=== PATIENT | male | born 1960 | race African-American/Black ===

== ENCOUNTER 2018-02-27 17:28 | Emergency (ER) | payer OTHER ==
[~2018-02-27] VITALS: Ht 185.4 cm; Wt 110.2 kg
[~2018-02-27 17:28] MED LIST: FOLI1TAB19 PO; PHEN100C4 PO; SIMV40TA1 PO; [UNRECOGNIZED DRUG - CODE] INH
[2018-02-27 17:30] VITALS: BP 124/86
[2018-02-27 19:02] VITALS: BP 125/79
== END 2018-02-27 18:55 | disposition home or self-care (01) ==
LOC: MED 17:28
DX: S93.401A Sprain of unspecified ligament of right ankle, initial encounter (principal); I10 Essential (primary) hypertension; Z79.899 Other long term (current) drug therapy; X50.1XXA Overexertion from prolonged static or awkward postures, initial encounter; Y93.89 Activity, other specified; Y92.524 Gas station as the place of occurrence of the external cause; Y99.8 Other external cause status
CPT/HCPCS: 73610; 73630; 99283; Q0092

== ENCOUNTER 2020-04-16 15:01 | Emergency (ER) | payer OTHER ==
[~2020-04-16] VITALS: Ht 188 cm; Wt 123.4 kg
[2020-04-16 15:04] VITALS: BP 118/72
[2020-04-16 16:38] LABS: BASOPHILS # (AUTO) 0.1 K/uL (0.00-0.22); BASOPHILS % (AUTO) 0.8 % (0.0-2.0); EOSINOPHILS # (AUTO) 0.3 K/uL (0-0.4); EOSINOPHILS % (AUTO) 3.2 % (0.0-4.0); HEMATOCRIT 38.1 % (36-52); HEMOGLOBIN 12.4 g/dL (12.0-18.0); LYMPHOCYTES # (AUTO) 2.9 K/uL (2.0-11.5); LYMPHOCYTES % (AUTO) 31.4 % (20.5-51.1); MEAN CORPUSCULAR HEMOGLOBIN 31 pg (27-31); MEAN CORPUSCULAR HGB CONC 33 g/dL (33-37); MEAN CORPUSCULAR VOLUME 95.7 fL (80-94); MONOCYTES # (AUTO) 0.9 K/uL (0.8-1.0); MONOCYTES % (AUTO) 9.2 % (1.7-9.3); NEUTROPHILS # (AUTO) 5.1 K/uL (1.8-7.7); NEUTROPHILS % (AUTO) 55.4 % (42.2-75.2); PLATELET COUNT (AUTO) 218 K/uL (140-450); RED BLOOD CELL COUNT(AUTO) 3.98 MIL/uL (4.20-6.10); RED CELL DISTRIBUTION WIDTH 13.3 % (11.6-13.7); WHITE BLOOD COUNT (AUTO) 9.3 K/uL (4.8-10.8)
[2020-04-16 16:56] LABS: ALBUMIN 3.6 g/dL (3.4-5.0); ANION GAP 11.1 (8-16); CARBON DIOXIDE 28.1 mmol/L (21-32); CREATININE 1.2 mg/dL (0.6-1.3); POTASSIUM 4.2 mmol/L (3.5-5.1); TOTAL BILIRUBIN 0.3 mg/dL (0.0-1.0)
[2020-04-16] MEDS ORDERED: CLOPIDOGREL 75 MG TAB PO ONE (17:00)
[2020-04-16] MEDS ORDERED: ASPIRIN 325 MG TAB PO ONE (17:00)
[2020-04-16 17:03] LABS: PROTHROMBIN TIME 9.8 secs (10.8-13.4)
[2020-04-16] MEDS ORDERED: ATORVASTATIN 80 MG TAB ONE (17:06)
[2020-04-16 17:35] VITALS: BP 132/96
[2020-04-17] MEDS ORDERED: ATORVASTATIN 80 MG TAB PO SCH (09:00)
== END 2020-04-16 17:35 | disposition designated cancer center or children's hospital (05) ==
LOC: MED 15:01
DX: I63.9 Cerebral infarction, unspecified (principal); I10 Essential (primary) hypertension
CPT/HCPCS: 36415; 70450; 80053; 85025; 85610; 85730; 99285

== ENCOUNTER 2020-07-01 19:59 | Emergency (ER) | payer OTHER ==
[~2020-07-01] VITALS: Ht 188 cm; Wt 131.5 kg
[2020-07-01 20:08] VITALS: BP 140/76
[2020-07-01] MEDS: KETOROLAC 60 MG/2 ML VIAL IM ONE (20:31)
[2020-07-01] MEDS ORDERED: IBUP-2213 PO (21:06)
[2020-07-01 21:29] VITALS: BP 140/76
== END 2020-07-01 21:30 | disposition home or self-care (01) ==
LOC: MED 19:59
DX: S90.212A Contusion of left great toe with damage to nail, initial encounter (principal); I10 Essential (primary) hypertension; W20.8XXA Other cause of strike by thrown, projected or falling object, initial encounter; Y93.89 Activity, other specified; Y92.89 Other specified places as the place of occurrence of the external cause; Y99.8 Other external cause status
CPT/HCPCS: 73630; 96372; 99283; J1885

== ENCOUNTER 2020-12-10 04:31 | Emergency (ER) | payer OTHER ==
[~2020-12-10] VITALS: Ht 188 cm; Wt 129.3 kg
[~2020-12-10 04:31] MED LIST changes: +IBUP-2213 PO
[2020-12-10 04:55] VITALS: BP 125/71
--- NOTE | 2020-12-10 04:55 | NUR ---
TO BED AMBULATORY WITH ASSITIVE DEVICE OF CANE
--- NOTE | 2020-12-10 05:20 | NUR ---
XRAY AT BEDSIDE
[2020-12-10] MEDS ORDERED: IBUP-2218 PO (05:26)
[2020-12-10 06:05] VITALS: BP 125/71
--- NOTE | 2020-12-10 06:05 | NUR ---
Patient discharged with v/s stable. Written and verbal after care instructions given and explained. Patient alert, oriented and verbalized understanding of instructions. Ambulatory with steady gait. All questions addressed prior to discharge. Patient advised to follow up with PMD. Rx of IBUPROFEN given. Patient educated on indication of medication including possible reaction and side effects. Opportunity to ask questions provided and answered.
== END 2020-12-10 06:05 | disposition home or self-care (01) ==
LOC: MED 04:31
DX: S62.232A Other displaced fracture of base of first metacarpal bone, left hand, initial encounter for closed fracture (principal); I10 Essential (primary) hypertension; E78.5 Hyperlipidemia, unspecified; Z79.899 Other long term (current) drug therapy; W01.0XXA Fall on same level from slipping, tripping and stumbling without subsequent striking against object, initial encounter; Y93.89 Activity, other specified; Y92.89 Other specified places as the place of occurrence of the external cause; Y99.8 Other external cause status
CPT/HCPCS: 29125; 73130; 99283; Q0092

== ENCOUNTER 2020-12-18 10:29 | Emergency (ER) | payer OTHER ==
[~2020-12-18] VITALS: Ht 185.4 cm; Wt 134.3 kg
[~2020-12-18 10:29] MED LIST changes: +IBUP-2218 PO
[2020-12-18 10:36] VITALS: BP 158/88
[2020-12-18 12:10] VITALS: BP 144/76
== END 2020-12-18 12:11 | disposition home or self-care (01) ==
LOC: MED 10:29
DX: M25.531 Pain in right wrist (principal); I10 Essential (primary) hypertension; Z79.899 Other long term (current) drug therapy; W19.XXXA Unspecified fall, initial encounter; Y93.89 Activity, other specified; Y92.89 Other specified places as the place of occurrence of the external cause; Y99.8 Other external cause status
CPT/HCPCS: 73130; 99283

== ENCOUNTER 2021-01-25 05:52 | Emergency (ER) | payer OTHER ==
[~2021-01-25] VITALS: Ht 185.4 cm; Wt 129.3 kg
[2021-01-25 05:55] VITALS: BP 134/80
--- NOTE | 2021-01-25 05:55 | NUR ---
TO BED AMBULATORY
--- NOTE | 2021-01-25 06:55 | NUR ---
60 Y/O MALE BIB SELF FOR FINGER PAIN X1 HOUR. PATIENT PRESENTS TO ED WITH LEFT HAND FINGER PAIN. PT STATES IT STARTED WITH HIS FINGER THEN WENT UP HIS ARM AND NOW COMPLAINS OF SOB. DENIES N/V/D; SKIN IS PINK/WARM/DRY; AAOX4 WITH EVEN AND STEADY GAIT; LUNGS CLEAR BL AND SPEAKING IN FULL SENTENCES; HR EVEN AND REGULAR; PT DENIES ANY FEVER OR COUGH AT THIS TIME; PATIENT STATES PAIN OF 6/10 AT THIS TIME; VSS; PATIENT POSITIONED FOR COMFORT; HOB ELEVATED; BEDRAILS UP X1; BED DOWN. ER MD MADE AWARE OF PT STATUS. HX: HTN, HIGH CHOLESTEROL, AND SEIZURES NKDA MEDS: LIPITOR, ASPRIN, ISOSORBIDE
--- NOTE | 2021-01-25 07:08 | NUR ---
ROVERTO PEPPERIA SWABBED AND GIVEN TO LABS AT BEDSIDE
--- NOTE | 2021-01-25 07:11 | NUR ---
XRAY AT BEDSIDE
[2021-01-25 07:20] LABS: BASOPHILS # (AUTO) 0.1 K/uL (0.00-0.22); BASOPHILS % (AUTO) 0.8 % (0.0-2.0); EOSINOPHILS # (AUTO) 0.3 K/uL (0-0.4); HEMATOCRIT 36.1 % (36-52); HEMOGLOBIN 11.7 g/dL (12.0-18.0); LYMPHOCYTES # (AUTO) 2.4 K/uL (2.0-11.5); LYMPHOCYTES % (AUTO) 32.2 % (20.5-51.1); MEAN CORPUSCULAR HEMOGLOBIN 31 pg (27-31); MEAN CORPUSCULAR HGB CONC 33 g/dL (33-37); MEAN CORPUSCULAR VOLUME 95.5 fL (80-94); MONOCYTES # (AUTO) 0.8 K/uL (0.8-1.0); MONOCYTES % (AUTO) 10.1 % (1.7-9.3); NEUTROPHILS # (AUTO) 3.9 K/uL (1.8-7.7); NEUTROPHILS % (AUTO) 52.9 % (42.2-75.2); PLATELET COUNT (AUTO) 234 K/uL (140-450); RED BLOOD CELL COUNT(AUTO) 3.78 MIL/uL (4.20-6.10); RED CELL DISTRIBUTION WIDTH 13.1 % (11.6-13.7); WHITE BLOOD COUNT (AUTO) 7.4 K/uL (4.8-10.8)
--- NOTE | 2021-01-25 07:29 | NUR ---
Pt report given to STEFANIE SELLERS. Transfer of care at this time.
[2021-01-25 07:42] LABS: ALBUMIN 3.1 g/dL (3.4-5.0); ANION GAP 8.5 (8-16); CARBON DIOXIDE 26.9 mmol/L (21-32); POTASSIUM 4.4 mmol/L (3.5-5.1); TOTAL BILIRUBIN 0.3 mg/dL (0.0-1.0)
--- NOTE | 2021-01-25 08:38 | NUR ---
assumed patient care 60 years old male presents to er with left 2nd/3rd fingers numb to arm pain/chest pain this morning condition stable now vital stable. no sob cp, numbness reported.
[2021-01-25 08:40] VITALS: BP 143/77
[2021-01-25] MEDS ORDERED: FURO20TA8 PO (08:40)
[2021-01-25] MEDS ORDERED: DOXY-487 PO (08:40)
== END 2021-01-25 08:52 | disposition home or self-care (01) ==
LOC: MED 05:52
DX: R09.89 Other specified symptoms and signs involving the circulatory and respiratory systems (principal); M79.675 Pain in left toe(s); I10 Essential (primary) hypertension; E78.00 Pure hypercholesterolemia, unspecified; Z20.822 Contact with and (suspected) exposure to COVID-19
CPT/HCPCS: 36415; 71045; 80053; 83880; 84484; 85025; 87426; 93005; 99285; Q0092

== ENCOUNTER 2021-01-31 17:48 | Observation (INO) | payer OTHER, SELFPAY ==
[~2021-01-31] VITALS: Ht 185.4 cm; Wt 126.1 kg
[~2021-01-31 17:48] MED LIST changes: +DOXY-487 PO; +FURO20TA8 PO
[2021-01-31 17:52] VITALS: BP 114/50
--- NOTE | 2021-01-31 18:16 | NUR ---
DR. HURST BEDSIDE EVALUATING PT
--- NOTE | 2021-01-31 19:20 | NUR ---
[place] SPECIMEN COLLECTED AND GIVEN TO LAB
--- NOTE | 2021-01-31 19:20 | NUR ---
Pt report given to MARLO RENO. Transfer of care at this time.
--- NOTE | 2021-01-31 19:23 | NUR ---
Chart checked and completed. The patient's care was reviewed and supervised by Elsa Foley, RN, RN.
--- NOTE | 2021-01-31 19:30 | NUR ---
PT STATED HE HAD AN EPISODE OF DIARRHEA. PT PROVIDED WITH BEDSIDE COMMODE, WIPES AND UNDER WEAR. PT STATED HE WILL THROW AWAY HIS UNDERWEAR. NO ASSISTANCE NEEDED FOR CHANGING OR USING BEDSIDE COMMODE, PT STATED "I GOT IT". ALL NEEDS MET AT THIS TIME. BED LOCKED IN LOWEST POSITION, SIDE RAIL X1.
--- NOTE | 2021-01-31 20:00 | NUR ---
PT'S BED SHEETS CHANGED, PROVIDED WITH BLANKET AND MORE WIPES. PT'S STOOL, BROWN AND LOOSE, NO BLOOD PRESENT. PT IS BACK IN BED AND PLACED BACK ON MONITOR. ALL NEEDS MET AT THIS TIME. BED LOCKED IN LOWEST POSITION, SIDE RAILS X2 FOR SAFETY.
[2021-01-31 20:04] LABS: BASOPHILS % (AUTO) 0.4 % (0.0-2.0); EOSINOPHILS % (AUTO) 0.2 % (0.0-4.0); HEMATOCRIT 36.4 % (36-52); LYMPHOCYTES # (AUTO) 2.2 K/uL (2.0-11.5); LYMPHOCYTES % (AUTO) 24.6 % (20.5-51.1); MEAN CORPUSCULAR HEMOGLOBIN 31 pg (27-31); MEAN CORPUSCULAR HGB CONC 33 g/dL (33-37); MEAN CORPUSCULAR VOLUME 94.5 fL (80-94); MONOCYTES # (AUTO) 1.2 K/uL (0.8-1.0); MONOCYTES % (AUTO) 13.8 % (1.7-9.3); NEUTROPHILS # (AUTO) 5.4 K/uL (1.8-7.7); PLATELET COUNT (AUTO) 174 K/uL (140-450); RED BLOOD CELL COUNT(AUTO) 3.85 MIL/uL (4.20-6.10); RED CELL DISTRIBUTION WIDTH 13.2 % (11.6-13.7); WHITE BLOOD COUNT (AUTO) 8.9 K/uL (4.8-10.8)
[2021-01-31 20:22] LABS: CARBON DIOXIDE 25.1 mmol/L (21-32); CREATININE 2.6 mg/dL (0.6-1.3); POTASSIUM 4.1 mmol/L (3.5-5.1)
[2021-01-31 20:45] LABS: ALBUMIN 3.1 g/dL (3.4-5.0); TOTAL BILIRUBIN 0.5 mg/dL (0.0-1.0)
--- NOTE | 2021-01-31 21:40 | NUR ---
PT MOVED TO BED 10 VIA [facility].
--- NOTE | 2021-01-31 22:15 | NUR ---
PT GIVEN URINAL.
[2021-02-01] MEDS ORDERED: KCL 20 MEQ/WATER INJ PREMIX 200 ML IV PRN (00:15)
[2021-02-01] MEDS ORDERED: MORPHINE SULFATE 4 MG/ML SYR IVP PRN (00:15)
[2021-02-01] MEDS ORDERED: HYDROcodone/APAP 5/325 MG 1 TAB TAB PO PRN (00:15)
[2021-02-01] MEDS ORDERED: POTASSIUM CHLORIDE 10 MEQ TABER PO PRN (00:15)
[2021-02-01] MEDS ORDERED: MAGNESIUM OXIDE 400 MG TAB PO PRN (00:15)
[2021-02-01] MEDS: AZITHROMYCIN 500 MG in DEXTROSE 5% 250 ML IV SCH (00:15)
[2021-02-01] MEDS ORDERED: MAG SULF 2000 MG/WATER PREMIX 50 ML IV PRN (00:15)
[2021-02-01] MEDS ORDERED: ONDANSETRON 4 MG/2 ML VIAL IVP PRN (00:15)
[2021-02-01] MEDS ORDERED: ACETAMINOPHEN 325 MG TAB PO PRN (00:15)
--- NOTE | 2021-02-01 00:15 | NUR ---
PT IS AWAKE AND ALERT. VSS. PT IS IN STABLE CONDITION. ALL NEEDS MET AT THIS TIME. BED LOCKED IN LOWEST POSITION, SIDE RAILS X2.
[2021-02-01] MEDS ORDERED: cefTRIAXone 1,000 MG VIAL ONE (00:57)
--- NOTE | 2021-02-01 01:10 | NUR ---
PT COMPLAINED OF 9/10 RIGHT HIP PAIN, REPOSITIONED, PAIN CONTINUES. PAIN MEDICATION ORDERS CARRIED OUT.
[2021-02-01] MEDS ORDERED: AZITHROMYCIN 500 MG INJ VIAL IV ONE (01:51)
--- NOTE | 2021-02-01 02:59 | NUR ---
PT HAS EYES CLOSED, OPENS EYES TO SOUND. VSS. PT IS IN STABLE CONDITION. ALL NEEDS MET AT THIS TIME. BED LOCKED IN LOWEST POSITION, SIDE RAILS X2.
--- NOTE | 2021-02-01 04:28 | NUR ---
PT HAS EYES CLOSED, OPENS TO SOUND. VSS. PT IS IN STABLE CONDITION. ALL NEEDS MET AT THIS TIME. BED LOCKED IN LOWEST POSITION, SIDE RAILSX2.
--- NOTE | 2021-02-01 05:00 | NUR ---
PT STATED HIS LEFT HIP HAS BEEN HURTING, STATED THAT WAS THE REASON HE CAME TO ER. MICHAEL MURRAY FOR XRAY. WAITING FOR CALL BACK.
--- NOTE | 2021-02-01 05:10 | NUR ---
STATED TO GET AN XRAY OF LEFT HIP.
--- NOTE | 2021-02-01 06:00 | NUR ---
pt provided with urinal.
--- NOTE | 2021-02-01 06:42 | NUR ---
PT HAS EYES CLOSED, OPENS TO SOUND. VSS. PT IS IN STABLE CONDITION. ALL NEEDS MET AT THIS TIME. BED LOCKED IN LOWEST POSITION, SIDE RAILSX2.
--- NOTE | 2021-02-01 07:16 | NUR ---
Report and continuation of care received from MARLO De Dios
--- NOTE | 2021-02-01 07:16 | NUR ---
REPORT GIVEN TO MARLO LUNA. TRANSFER OF CARE AT THIS TIME.
--- NOTE | 2021-02-01 07:25 | NUR ---
Patient resting in position of comfort on telephone at this time. awake overnight monitor in place. No distress noted. Bed locked in lowest position, side rails x 1, call light in reach.
--- NOTE | 2021-02-01 08:32 | NUR ---
Breakfast mealtray at bedside. Pt completing meal
[2021-02-01] MEDS ORDERED: DEXAMETHASONE 4 MG/ML VIAL IVP SCH (09:00)
--- NOTE | 2021-02-01 09:31 | NUR ---
Patient with both eyes closed in semi-fowlers position. pvc monitor remains in place. VSS; respirations even/unlabored. SpO2 96% on room air.
[2021-02-01] MEDS: ENOXAPARIN 40 MG/0.4 ML SYR SUBQ SCH (09:56)
[2021-02-01] MEDS: DOCUSATE SODIUM 100 MG GELCAP PO SCH (09:56)
--- NOTE | 2021-02-01 10:21 | NUR ---
Pt asleep with both eyes closed. All pt needs met.
--- NOTE | 2021-02-01 11:39 | NUR ---
Lunch mealtray at bedside. Pt completing meal at this time.
--- NOTE | 2021-02-01 13:55 | NUR ---
Physical therapist at bedside
--- NOTE | 2021-02-01 14:25 | NUR ---
Hodan, PT states patient good to ambulate with cane without restrictions; states good SpO2 on room air throughout PT and will not require rehab.
--- NOTE | 2021-02-01 15:30 | NUR ---
PATIENT HAS BEEN SCREENED AND CATEGORIZED MODERATE NUTRITION RISK. PATIENT WILL BE SEEN WITHIN 3-5 DAYS OF ADMISSION. 02/01/21 02/05/[address]
--- NOTE | 2021-02-01 15:32 | NUR ---
Patient resting with both eyes closed in semi-fowlers position. manager monitoring in place SpO2 99% on room air. All pt needs met.
--- NOTE | 2021-02-01 17:30 | NUR ---
Pt states he is hungry. Advised of dinner mealtray times. SpO2 98%, HR 86 RR 16 even/unlabored. Bed locked in lowest position, side rails x 1.
--- NOTE | 2021-02-01 18:48 | NUR ---
Dinner mealtray at bedside. All pt needs met. SpO2 98% on room air RR even/unlabored @ 20.
--- NOTE | 2021-02-01 19:28 | NUR ---
Report and transfer of care endorsed to MARLO Palmer
--- NOTE | 2021-02-01 20:53 | NUR ---
Patient will be admitted to care of MIKAL. Admited to MED SURG. Will go to [facility] 115. Belongings list completed. Report to
[2021-02-01 21:00] VITALS: BP 117/74
[2021-02-01] MEDS ORDERED: SIMVASTATIN 40 MG TAB PO SCH (21:00)
--- NOTE | 2021-02-01 22:38 | NUR ---
RECEIVED PT TRANSFER FROM ER. PT IS ON RA. A/A/OX4. PT HAS A 22 LEFT WRIST SALINE LOCK. SKIN INTACT. VSS. PT WAS EDUCATED ON HOW TO USE THE CALL LIGHT SYSTEM, ROOM ENVIRONMENT, AND STAFF. CALL LIGHT WITHIN REACH. ALL SAFETY MEASURES TAKEN. WILL CONTINUE TO MONITOR THE PT AND PROVIDE PLAN OF CARE.
--- NOTE | 2021-02-01 23:06 | NUR ---
Note ghada in EDM - 02/01/21 at 2307 by RYNA Patient will be admitted to care of REN. Admited to MED SURG. Will go to room 115. Belongings list completed. Report to
--- NOTE | 2021-02-02 | NUR ---
ALL DUE MEDS GIVEN. NO ADVERSE REACTION NOTED. CALL LIGHT WITHIN REACH. ALL SAFETY MEASURES TAKEN. WILL CONTINUE TO MONITOR THE PT.
[2021-02-02] MEDS: AZITHROMYCIN 500 MG in DEXTROSE 5% 250 ML IV SCH (00:51)
--- NOTE | 2021-02-02 02:35 | NUR ---
PT IS SLEEPING IN BED. PT IS NOT IN ANY DISTRESS. NO SIGNS OF SOB OR LABORED BREATHING NOTED. CALL LIGHT WITHIN REACH. ALL SAFETY MEASURES TAKEN. WILL CONTINUE TO MONITOR THE PT.
[2021-02-02 04:00] VITALS: BP 142/58
--- NOTE | 2021-02-02 04:00 | NUR ---
PT IS SLEEPING IN BED. PT IS NOT IN ANY DISTRESS. NO SIGNS OF SOB OR LABORED BREATHING. CALL LIGHT WITHIN REACH. ALL SAFETY MEASURES TAKEN. WILL CONTINUE TO MONITOR THE PT.
[2021-02-02 07:11] LABS: BASOPHILS % (AUTO) 0.3 % (0.0-2.0); EOSINOPHILS % (AUTO) 0.7 % (0.0-4.0); HEMATOCRIT 36.1 % (36-52); HEMOGLOBIN 11.9 g/dL (12.0-18.0); LYMPHOCYTES # (AUTO) 1.2 K/uL (2.0-11.5); LYMPHOCYTES % (AUTO) 19.7 % (20.5-51.1); MEAN CORPUSCULAR HEMOGLOBIN 31 pg (27-31); MEAN CORPUSCULAR HGB CONC 33 g/dL (33-37); MEAN CORPUSCULAR VOLUME 93.9 fL (80-94); MONOCYTES # (AUTO) 0.6 K/uL (0.8-1.0); MONOCYTES % (AUTO) 9.3 % (1.7-9.3); NEUTROPHILS # (AUTO) 4.4 K/uL (1.8-7.7); PLATELET COUNT (AUTO) 163 K/uL (140-450); RED BLOOD CELL COUNT(AUTO) 3.85 MIL/uL (4.20-6.10); RED CELL DISTRIBUTION WIDTH 13.1 % (11.6-13.7); WHITE BLOOD COUNT (AUTO) 6.3 K/uL (4.8-10.8)
[2021-02-02 07:15] LABS: PROTHROMBIN TIME 10.6 secs (10.8-13.4)
--- NOTE | 2021-02-02 07:25 | NUR ---
ENDORSED PT TO DAY SHIFT RN FOR CONTINUITY OF CARE. PT IS IN STABLE CONDITION.
--- NOTE | 2021-02-02 07:30 | NUR ---
RECEIVED REPORT FROM COVER STITCH MACHINE OPERATOR RN FOR CONTINUITY OF CARE. PATIENT IS RESTING IN BED. NO S/S OF DISTRESS. RESPIRATIONS EVEN AND UNLABORED. ALL SAFETY PRECAUTIONS IN PLACE.
[2021-02-02] MEDS ORDERED: AZIT500T PO (08:54)
[2021-02-02] MEDS ORDERED: PHENYTOIN 100 MG CAPER PO SCH (09:00)
[2021-02-02] MEDS: DOCUSATE SODIUM 100 MG GELCAP PO SCH (09:00)
[2021-02-02] MEDS ORDERED: FUROSEMIDE 20 MG TAB PO SCH (09:00)
[2021-02-02] MEDS: ENOXAPARIN 40 MG/0.4 ML SYR SUBQ SCH (09:01)
--- NOTE | 2021-02-02 09:02 | NUR ---
ADMINISTERED SCHEDULED MEDICATIONS. PATIENT VERBALIZED UNDERSTANDING. PATIENT REFUSED COLACE AND PHENYTOIN AND STATED HE WOULD TAKE THEM AT NIGHT AT HOME. PATIENT VERBALIZED NEED TO GO HOME. SPOKE WITH DR REN AND HE CONFIRMED DISCHARGE FOR AM.
[2021-02-02 09:33] VITALS: BP 112/76
[2021-02-02 09:39] LABS: ANION GAP 14.1 (8-16); CARBON DIOXIDE 23.1 mmol/L (21-32); CREATININE 1.3 mg/dL (0.6-1.3); POTASSIUM 4.2 mmol/L (3.5-5.1); TOTAL BILIRUBIN 0.6 mg/dL (0.0-1.0)
--- NOTE | 2021-02-02 09:44 | NUR ---
ENDORSED DISCHARGED INSTRUCTIONS TO PATIENT. PATIENT VERBALIZED UNDERSTANDING. PATIENT AMBULATED OFF UNIT AND WAS PICKED UP BY A FRIEND. PATIENT STABLE.
--- NOTE | 2021-02-02 10:31 | NUR ---
DC PLANNING: CM SPOKE WITH JAMES FROM [facility], ENDORSED THAT THE PATIENT HAS DISCHARGED. CM WILL FOLLOW NEEDED.
== END 2021-02-02 09:46 | disposition home or self-care (01) ==
LOC: MED 17:48 → MTU 02-01 00:12
PROVIDERS: ADMIT Internal Medicine; ATTEND Internal Medicine
DX: U07.1 COVID-19 (principal); J12.82 Pneumonia due to coronavirus disease 2019; I10 Essential (primary) hypertension; E78.5 Hyperlipidemia, unspecified; G40.909 Epilepsy, unspecified, not intractable, without status epilepticus; Z79.899 Other long term (current) drug therapy
CPT/HCPCS: 36415; 71045; 73521; 80053; 83735; 83880; 84484; 85025; 85610; 87081; 87426; 93005; 96365; 96366; 96367; 96372; 96375; 97163; 97530; 99285; G0378; J0456; J0696; J1650; J2270; J7060

== ENCOUNTER 2022-05-31 10:20 | Emergency (ER) | payer OTHER ==
[~2022-05-31] VITALS: Ht 185.4 cm; Wt 117.0 kg
[~2022-05-31 10:20] MED LIST changes: +AZIT500T PO; -DOXY-487 PO; +SIMV-373 PO; -SIMV40TA1 PO
[2022-05-31 10:25] VITALS: BP 134/91
--- NOTE | 2022-05-31 10:38 | NUR ---
PATIENT AMBULATED TO LOBBY BY CANE, STEADY/EVEN GAIT.
--- NOTE | 2022-05-31 11:00 | NUR ---
COVID, FLU SWABS COLLECTED, WALKED TO LAB AND HANDED TO CPT. LOG BOOK COMPLETED.
--- NOTE | 2022-05-31 12:24 | NUR ---
DR ARAMBULA AT BEDSIDE EVALUATING PT AT THIS TIME
[2022-05-31] MEDS ORDERED: ACET-10509 PO (12:29)
[2022-05-31] MEDS ORDERED: MUC600 PO (12:29)
[2022-05-31] MEDS ORDERED: AZIT250T3 PO (12:29)
--- NOTE | 2022-05-31 12:43 | NUR ---
Patient discharged with v/s stable. Written and verbal after care instructions ACUTE BRONCHITIS given and explained. Patient verbalized understanding. Ambulatory with steady gait. All questions addressed prior to discharge. Advised to follow up with PMD. Rx: Tylenol, azithromycin, mucinex
== END 2022-05-31 12:40 | disposition home or self-care (01) ==
LOC: MED 10:20
DX: J20.9 Acute bronchitis, unspecified (principal); Z20.822 Contact with and (suspected) exposure to COVID-19; I10 Essential (primary) hypertension; E78.5 Hyperlipidemia, unspecified; Z86.69 Personal history of other diseases of the nervous system and sense organs; Z79.899 Other long term (current) drug therapy; Z79.1 Long term (current) use of non-steroidal anti-inflammatories (NSAID); Z79.2 Long term (current) use of antibiotics
CPT/HCPCS: 99283

== ENCOUNTER 2023-04-21 19:41 | Emergency (ER) | payer OTHER ==
[~2023-04-21] VITALS: Ht 188 cm; Wt 106.6 kg
[2023-04-21 19:41] VITALS: BP 142/74; PULSE 68; RESP 22; TEMP 98; O2SAT 98
[~2023-04-21 19:41] MED LIST changes: +ACET-10509 PO; +APIX5TAB PO; +ATOR80TA27 PO; +AZIT250T3 PO; +ENAL10TA51 PO; +EZET10TA50 PO; +ISOS5TAB10 PO; +MUC600 PO; +PHEN300C5 PO
[2023-04-21 19:45] VITALS: BP 142/72; PULSE 68; RESP 22; TEMP 98
[2023-04-21 19:50] VITALS: O2SAT 98
[2023-04-21] MEDS ORDERED: ONDA8TAB87 PO (20:44)
[2023-04-21] MEDS ORDERED: CIPR500T4 PO (20:44)
[2023-04-21] MEDS: KETOROLAC 60 MG/2 ML VIAL IM ONE (21:02)
== END 2023-04-21 21:03 | disposition home or self-care (01) ==
LOC: MED 19:41
DX: N39.0 Urinary tract infection, site not specified (principal); I11.9 Hypertensive heart disease without heart failure; Z79.899 Other long term (current) drug therapy
CPT/HCPCS: 81002; 96372; 99283; J1885

== ENCOUNTER 2023-05-09 16:36 | Emergency (ER) | payer OTHER ==
[~2023-05-09] VITALS: Ht 188 cm; Wt 104.3 kg
[~2023-05-09 16:36] MED LIST changes: +CIPR500T4 PO; +ONDA8TAB87 PO
[2023-05-09 16:47] VITALS: BP 142/101; PULSE 147; RESP 20; TEMP 98.2; O2SAT 97
[2023-05-09 17:00] VITALS: O2SAT 97
[2023-05-09 18:28] LABS: BASOPHILS # (AUTO) 0.1 K/uL (0.00-0.22); EOSINOPHILS # (AUTO) 0.3 K/uL (0-0.4); EOSINOPHILS % (AUTO) 3.2 % (0.0-4.0); HEMATOCRIT 32.3 % (36-52); HEMOGLOBIN 10.8 g/dL (12.0-18.0); LYMPHOCYTES # (AUTO) 2.2 K/uL (2.0-11.5); LYMPHOCYTES % (AUTO) 24.6 % (20.5-51.1); MEAN CORPUSCULAR HEMOGLOBIN 32 pg (27-31); MEAN CORPUSCULAR HGB CONC 34 g/dL (33-37); MEAN CORPUSCULAR VOLUME 95.7 fL (80-94); MONOCYTES # (AUTO) 0.7 K/uL (0.8-1.0); MONOCYTES % (AUTO) 7.7 % (1.7-9.3); NEUTROPHILS # (AUTO) 5.6 K/uL (1.8-7.7); NEUTROPHILS % (AUTO) 63.5 % (42.2-75.2); PLATELET COUNT (AUTO) 239 K/uL (140-450); RED BLOOD CELL COUNT(AUTO) 3.37 MIL/uL (4.20-6.10); RED CELL DISTRIBUTION WIDTH 14.4 % (11.6-13.7); WHITE BLOOD COUNT (AUTO) 8.8 K/uL (4.8-10.8)
[2023-05-09 18:38] VITALS: TEMP 98.2
[2023-05-09 18:40] LABS: ANION GAP 11.3 (8-16); CALCIUM 8.7 mg/dL (8.5-10.1); CARBON DIOXIDE 27.8 mmol/L (21-32); CREATININE 1.2 mg/dL (0.6-1.3); INR 1.05 (0.8-1.2); PARTIAL THROMBOPLASTIN TIME 23.7 secs (22-35.6); POTASSIUM 4.1 mmol/L (3.5-5.1)
[2023-05-09 18:46] LABS: ALANINE AMINOTRANSFERASE 15 U/L (12-78); ALKALINE PHOSPHATASE 147 U/L (50-136); ASPARTATE AMINOTRANSFERASE 18 U/L (15-37); BILIRUBIN,DIRECT 0.1 mg/dL (0.0-0.3); TOTAL BILIRUBIN 0.3 mg/dL (0.0-1.0); TOTAL PROTEIN, SERUM 6.9 g/dL (6.4-8.2)
[2023-05-09] MEDS ORDERED: APIX5TAB PO (19:05)
[2023-05-09 19:50] VITALS: BP 162/88; PULSE 100; RESP 25; O2SAT 94
[2023-05-09] MEDS: APIXABAN 2.5 MG TAB PO ONE (19:52)
== END 2023-05-09 19:53 | disposition home or self-care (01) ==
LOC: MED 16:36
DX: I82.412 Acute embolism and thrombosis of left femoral vein (principal); I82.432 Acute embolism and thrombosis of left popliteal vein; F14.10 Cocaine abuse, uncomplicated; F16.10 Hallucinogen abuse, uncomplicated; E78.5 Hyperlipidemia, unspecified; I10 Essential (primary) hypertension; Z86.69 Personal history of other diseases of the nervous system and sense organs; Z79.899 Other long term (current) drug therapy; Z79.01 Long term (current) use of anticoagulants
CPT/HCPCS: 36415; 71045; 80048; 80076; 83880; 84484; 85025; 85610; 85730; 93005; 93971; 99285; Q0092

== ENCOUNTER 2023-06-03 23:40 | Emergency (ER) | payer OTHER | END 2023-06-04 | disposition left against medical advice (07) | LOC: MED 23:40 | DX: R51.9 Headache, unspecified (principal); Z53.21 Procedure and treatment not carried out due to patient leaving prior to being seen by health care provider ==

== ENCOUNTER 2023-09-26 21:24 | Emergency (ER) | payer OTHER ==
[~2023-09-26] VITALS: Ht 185.4 cm; Wt 81.6 kg
[2023-09-26 21:49] VITALS: BP 135/78; PULSE 64; RESP 16; TEMP 97.2; O2SAT 100
== END 2023-09-27 00:10 | disposition left against medical advice (07) ==
LOC: MED 21:24
DX: R51.9 Headache, unspecified (principal); R22.40 Localized swelling, mass and lump, unspecified lower limb; Z53.21 Procedure and treatment not carried out due to patient leaving prior to being seen by health care provider

== ENCOUNTER 2023-10-02 01:20 | Emergency (ER) | payer OTHER ==
[~2023-10-02] VITALS: Ht 185.4 cm; Wt 86.2 kg
[~2023-10-02 01:20] MED LIST changes: -ACET-10509 PO; +ACET500T99 PO
[2023-10-02 01:24] VITALS: BP 112/63; PULSE 58; RESP 16; TEMP 96.3; O2SAT 100
[2023-10-02] MEDS ORDERED: PRED20TA5 PO (02:03)
[2023-10-02] MEDS ORDERED: MECL-303 PO (02:03)
[2023-10-02 02:15] VITALS: BP 122/63; PULSE 55; RESP 15; TEMP 97; O2SAT 98
== END 2023-10-02 02:15 | disposition home or self-care (01) ==
LOC: MED 01:20
DX: R42 Dizziness and giddiness (principal); R06.02 Shortness of breath; R05.9 Cough, unspecified; I10 Essential (primary) hypertension; E78.5 Hyperlipidemia, unspecified; Z86.69 Personal history of other diseases of the nervous system and sense organs; Z79.899 Other long term (current) drug therapy; Z79.1 Long term (current) use of non-steroidal anti-inflammatories (NSAID); Z79.2 Long term (current) use of antibiotics
CPT/HCPCS: 82948; 99283